=== PATIENT | female | born 1970 | race Caucasian/White ===

== ENCOUNTER → 2019-07-15 12:33 | Outpatient (CLI) | payer MEDICARE, MEDICAID, SELFPAY ==
[2019-07-15 12:49] LABS: Add Manual Diff / Slide Review NO; Basophils Absolute Auto 100 /uL (0-100); Basophils Percent Auto 1.1 % (0-2); Eosinophils Absolute Auto 200 /uL (0-450); Eosinophils Percent Auto 2.8 % (2-4); Hematocrit 40.4 % (36-46); Hemoglobin 13.5 g/dL (12.0-16.0); Lymphocytes Absolute Auto 2900 /uL (1100-4500); Lymphocytes Percent Auto 34.1 % (25-40); Mean Corpuscular HGB Conc 33.4 % (30-36); Mean Corpuscular Hemoglobin 30.2 PG (26-34); Mean Corpuscular Volume 90.5 fL (80-100); Monocytes Absolute Auto 500 /uL (0-900); Monocytes Percent Auto 6.3 % (3-14); Neutrophils Absolute Auto 4800 /uL (1500-7000); Neutrophils Percent Auto 55.7 % (50-75); Platelet Count 350 X10^3/uL (150-400); Red Blood Cell Count 4.47 X10^6/uL (4.0-5.2); Red Cell Distribution Width 13.5 % (11.6-14.8); White Blood Cell Count 8.6 X10^3/uL (4.5-11.0)
[2019-07-15 13:38] LABS: Alanine Aminotransferase 12 IU/L (9-52); Albumin 4.4 g/dL (3.5-5.0); Albumin Globulin Ratio 1.5 (1.0-2.8); Alkaline Phosphatase 94 U/L (38-126); Aspartate Aminotransferase 18 IU/L (14-36); Bilirubin Total 0.3 mg/dL (0.2-1.3); Blood Urea Nitrogen 6 mg/dL (7-17); Calcium 9.8 mg/dL (8.4-10.2); Carbon Dioxide 26 mmol/L (22-32); Chloride 102 mmol/L (98-107); Estimated Glomerular Filt Rate > 60.0 mL/min (>60); Glucose 112 mg/dL (70-100); HEMOLYSIS < 15 (0-50); Potassium 4.2 mmol/L (3.4-5.1); Sodium 139 mmol/L (137-145); Total Protein 7.4 g/dL (6.3-8.2)
== END ==
PROVIDERS: Visit Provider Internal Medicine
DX: R35.8 Other polyuria (principal); F31.9 Bipolar disorder, unspecified
CPT/HCPCS: 36415; 80053; 85025

== ENCOUNTER 2019-07-24 09:58 | Emergency (ER) | payer MEDICARE, MEDICAID, SELFPAY ==
[2019-07-24 10:09] VITALS: BP 93/59; PULSE 82; RESP 18; TEMP 36.7; O2SAT 95
[2019-07-24 12:24] VITALS: BP 104/48; PULSE 71; RESP 16; O2SAT 97
--- NOTE | 2019-07-24 12:45 | ED_ITS ---
HPI - Skin/Abscess/Foreign Bdy <UNIQUE Duval - Last Filed: 07/24/19 22:09> General Chief complaint: Skin/Abscess/Foreign Body Stated complaint: BUMPS ON FACE, RASH Time Seen by Provider: 07/24/19 12:02 Source: patient Mode of arrival: Ambulatory Limitations: no limitations History of Present Illness HPI narrative: This is a 49-year-old female, smoker, presents with daughter with chief complain of painful blisters around her lips and nose for last 2-3 days. Also, she reports dry scaly rash on right extensor elbow. Patient denies fever, chills, nausea or vomiting. However, has increased stress recently with taking care of her children and their school/sports activities. She also had some mild URI symptoms last couple of days which is improving. Patient denies immunocom promised or having chronic disease. Related Data Previous Rx's Medication Instructions Recorded acyclovir 400 mg PO Q8H 7 Days #21 tab 07/24/19 hydrocortisone 1 applictn TOP TID PRN #28 gram 07/24/19 Review of Systems <UNIQUE Duval - Last Filed: 07/24/19 22:09> Review of Systems ROS Unobtainable: All systems reviewed & are unremarkable except as noted in HPI and below Patient History <UNIQUE Duval - Last Filed: 07/24/19 22:09> Medical History (Updated 07/24/19 @ 21:43 by UNIQUE Duval) No significant past medical history (Acute) Surgical History No pertinent past surgical history (Acute) Social History Smoking Status: Current every day smoker Social History Smoking Status: Current every day smoker alcohol intake frequency: other Substance Use Type: does not use Exam <UNIQUE Duval - Last Filed: 07/24/19 22:09> Narrative Exam Narrative: General appearance: well developed, well nourished, in no acute distress. Head: normocephalic, atraumatic, no scalp lesions, non-tender. Eye: pupil equal, round. EOMI. Nose: nares patent. Oral: mucosa moist. Clustered red and crusty rashes around the lips and nasal opening. Neck/Thyroid: neck supple, full range of motion, no visible masses. Skin: Dry, scaly and plaque like rash on right extensor elbow. No other suspicious rashes, lesions over visible areas. Warm and dry. Heart: no clubbing, no cyanosis, no edema. Lungs: Breathing even and unlabored. No stridor. No accessory muscles used. Chest: normal shape and expansion. Abdomen: non-obese, non-distended. Neurologic: alert and oriented. Cognitive exam, EDUCATIONAL RESOURCE COORDINATOR and PNS grossly intact on informal exam. Psych: good eye contact, normal affect. Initial Vital Signs Initial Vital Signs: Vital Signs Temperature 98.0 F 07/24/19 10:09 Pulse Rate 82 07/24/19 10:09 Respiratory Rate 18 07/24/19 10:09 Blood Pressure 93/59 L 07/24/19 10:09 Pulse Oximetry 95 07/24/19 10:09 <Polina Henderson DO - Last Filed: 07/28/19 18:09> Initial Vital Signs Initial Vital Signs: Vital Signs Temperature 98.0 F 07/24/19 10:09 Pulse Rate 82 07/24/19 10:09 Respiratory Rate 18 07/24/19 10:09 Blood Pressure 93/59 L 07/24/19 10:09 Pulse Oximetry 95 07/24/19 10:09 Scores <ROGER DuvalP - Last Filed: 07/24/19 22:09> GCS [place] coma scale eye opening: Spontaneous [place] coma scale verbal response: Orientated [place] coma scale motor response: Obey commands [place] coma scale total score: 15 Course <ROGER DuvalP - Last Filed: 07/24/19 22:09> Vital Signs Vital signs: Vital Signs - 8 hr 07/24/19 10:09 07/24/19 12:24 Temperature 98.0 F Pulse Rate 82 71 Respiratory Rate 18 16 Blood Pressure 93/59 L Blood Pressure [Left Arm] 104/48 L Pulse Oximetry 95 97 <Polina Henderson DO - Last Filed: 07/28/19 18:09> Vital Signs Vital signs: Vital Signs - 8 hr 07/24/19 10:09 07/24/19 12:24 Temperature 98.0 F Pulse Rate 82 71 Respiratory Rate 18 16 Blood Pressure 93/59 L Blood Pressure [Left Arm] 104/48 L Pulse Oximetry 95 97 MDM - Skin/Abscess/Foreign Bdy <UNIQUE Duval - Last Filed: 07/24/19 22:09> Differential Diagnosis Differential diagnosis: Likely eczema and other (HSV type 1, atopic dermatitis, psoriasis) Medical Records Attestation: I reviewed the patient's medical records. [facility] Narrative Medical decision making narrative: This is a 49-year-old female, smoker, with under stress presents to ED with small painful crusty lesions around the lips and nasal openings for last 2-3 days. She also complains of scaly and plaque- like rash on her right extensor elbow. She does not have constitutional symptoms. 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 Right extensor elbow skin lesion appears to be psoriasis vs. eczema vs. dry skin. Prescription has been provided for initial acyclovir 400 mg t.i.d. dose for 7 days for HSV 1 infection and hydrocortisone 2% cream with rich moisturizer on affected elbow as well. Patient advised to stop smoking but declines at this time. Return precautions were discussed with the patient and the patient verbalized understanding and agrees with treatment plan. Discharge Plan Departure Patient Disposition: Home Clinical Impression: Oral herpes simplex infection, Eczema of right upper extremity Discharge Date/Time: 07/24/19 12:45 Instructions: DI for Cold Sores, DI for Atopic Dermatitis - Adult Activity Restrictions/Additional Instructions: You have been diagnosed with [likely oral cold sores, eczema/dermatitis on your elbow]. What to do: *Take your medications as directed. Start medication as soon as you pick it up today. Please take precautions not to share drinks, utensils, or casting until your cold sores resolved. *Follow up with your primary care provider in 2-3 days, call for an appointment. Let them know you were seen in the ED and that we asked you to be seen in follow up. *Return to ED if you have any new, worsening, or concerning symptoms, such as [fever, chest pain, breathing difficulty, unable to tolerate fluids, or any acute concerns]. Prescriptions: New acyclovir 400 mg tablet 400 mg PO Q8H 7 Days Qty: 21 RF: 0 hydrocortisone 2.5 % cream 1 applictn TOP TID PRN (Reason: dry rash) Qty: 28 RF: 0 Referrals: Jorden Sellers MD [Physician] -
== END 2019-07-24 12:45 | disposition home or self-care (01) ==
PROVIDERS: Emergency Provider Nurse Practitioner Family
DX: B00.2 Herpesviral gingivostomatitis and pharyngotonsillitis (principal); L30.9 Dermatitis, unspecified
CPT/HCPCS: 99282

== ENCOUNTER → 2019-08-31 09:49 | Outpatient (CLI) | payer MEDICARE, MEDICAID, SELFPAY ==
--- NOTE | 2019-08-31 | DI.MG.S_ITS ---
BILATERAL DIGITAL SCREENING MAMMOGRAM 3D/2D WITH CAD: 08/31/2019 CLINICAL: Routine screening. Baseline exam. No prior exams were available for comparison. There are scattered fibroglandular elements in both breasts. Current study was also evaluated with a Computer Aided Detection (CAD) system. There is an oval low density focal asymmetry with an indistinct margin in the right breast at 6 o'clock posterior depth. No other significant masses, calcifications, or other findings are seen in either breast. IMPRESSION: INCOMPLETE: NEEDS ADDITIONAL IMAGING EVALUATION The oval low density focal asymmetry in the right breast is indeterminate. Mediolateral and spot compression views as well as additional views with possible ultrasound are recommended. This exam was interpreted at Station ID: [id number]. NOTE: For mammograms, a report in lay terms will be sent to the patient. Approximately 15% of breast malignancies will not be visualized mammographically. In the management of a palpable breast mass, a negative mammogram must not discourage biopsy of a clinically suspicious lesion. Electronically Signed By: Ruddy de leon/al:08/31/2019 11:03:22 letter sent: Additional Imaging Needed ACR BI-RADS Category 0: Incomplete [id number]
== END ==
PROVIDERS: PCP Internal Medicine; Visit Provider Nurse Practitioner Family
DX: Z12.31 Encounter for screening mammogram for malignant neoplasm of breast (principal)
CPT/HCPCS: 77063; 77067

== ENCOUNTER 2020-06-16 16:55 | Emergency (ER) | payer MEDICARE, MEDICAID, SELFPAY ==
--- NOTE | 2020-06-16 17:07 | DI.RAD.S_ITS ---
PROCEDURE: XR TOE LT MIN 2V INDICATIONS: dropped cement on it TECHNIQUE: Three views of the left 2nd toe(s) acquired. COMPARISON: None. FINDINGS: Bones: No fractures or dislocations comminuted crush type fracture of the 2nd distal phalanx including the tuft in potentially extending to the articular surface seen on the lateral view. Bone alignment remains normal. There is enthesopathic change at the 5th metatarsal base Soft tissues: No suspicious soft tissue densities. IMPRESSION: 1. Crush fracture of the 2nd distal phalanx with probable extension to the articular surface. 2. If there is disruption of the nail bed, treated as an open fracture. Dictated by: Fouzia Amezquita M.D. on 06/16/2020 at 17:24 Approved by: Fouzia Amezquita M.D. on 06/16/2020 at 17:26
[2020-06-16 17:09] VITALS: BP 101/62; PULSE 87; RESP 18; TEMP 36.8; O2SAT 98; BMI 31.9
[2020-06-16] MEDS: CEFAZOLIN 2 GM/100 ML FROZ.PIGGY IV (19:33)
[2020-06-16] MEDS: BACITRACIN OINT 0.9 GM PCKT 1 APPLIC TOP (19:33)
[2020-06-16 20:21] VITALS: BP 100/60; PULSE 77; O2SAT 99
--- NOTE | 2020-06-16 20:21 | ED.LOWEXIN ---
HPI - Extremity Injury (Lower) <DEBRA Houser - Last Filed: 06/16/20 20:36> General Chief Complaint: Extremity Injury, Lower Stated Complaint: lt foot pain Time Seen by Provider: 06/16/20 16:58 Source: patient Mode of arrival: Ambulatory Limitations: no limitations History of Present Illness HPI Narrative: The patient is a 50-year-old female current everyday smoker with history of schizophrenia who presents with a chief complaint of an injury to her left foot. She states she dropped a Pallet on her 2nd toe of her left foot over 24 hours ago. She has history of fracture in that toe. She states her tetanus is up-to-date, in fact she received a few days ago. She states that they have washed it out with hydrogen peroxide. Her notes that she walked over to miles on her foot today and he is concerned about a fracture. Related Data Previous Rx's Medication Instructions Recorded hydrocortisone 1 applictn TOP TID PRN #28 gram 07/24/19 cephalexin 500 mg PO TID #30 cap 06/16/20 Allergies Allergy/AdvReac Type Severity Reaction Status Date / Time No Known Drug Allergies Allergy Verified 06/16/20 17:08 Review of Systems <DEBRA Houser - Last Filed: 06/16/20 20:36> Review of Systems Narrative: GENERAL: Denies chills, fatigue, malaise, fever, sweats. HEENT: Denies sinus pain, ear pain, sore throat, difficulty swallowing, dizziness. RESPIRATORY: Denies dyspnea, cough, wheezing, hemoptysis, sputum. CARDIOVASCULAR: Denies chest pain, palpitations, orthopnea, edema, GASTROINTESTINAL: Denies nausea, vomiting, abdominal pain, diarrhea, constipation, melena. : Denies dysuria, frequency, incontinence, hematuria, urinary retention. MUSCULOSKELETAL: See HPI SKIN: See HPI NEUROLOGIC: Denies weakness, headache, numbness, change in speech, confusion, seizures, incoordination. PSYCHIATRIC: No concerning psychosocial issues. 12 point review of systems is negative except for those stated above Patient History <DEBRA Houser - Last Filed: 06/16/20 20:36> Medical History (Updated 06/16/20 @ 20:28 by DEBRA Houser) No significant past medical history (Acute) Surgical History No pertinent past surgical history (Acute) Social History Smoking Status: Current every day smoker Smoking Status: Current every day smoker alcohol intake frequency: other Substance Use Type: does not use Exam <DEBRA Houser - Last Filed: 06/16/20 20:36> Narrative Exam Narrative: GENERAL: This is a well-nourished, well-developed patient, appears anxious HEAD: Atraumatic. Normocephalic. No temporal or scalp tenderness. EYES: Pupils equal round and reactive. Extraocular motions intact. No scleral icterus. No injection or drainage. ENT: Nose without bleeding, purulent drainage or septal hematoma. Wearing a mass. Airway patent. NECK: Trachea midline. No JVD or lymphadenopathy. Supple, nontender, no meningeal signs. CARDIOVASCULAR: Regular rate and rhythm RESPIRATORY: No cough. No increased respiratory effort. No accessory muscle use. EXTREMITIES: 2nd toe, left foot with ecchymosis on distal phalanx. Small abrasion noted id IP, 0.25 cm laceration noted at nail bed. No obvious nail injury. Capillary refill less than 2 seconds. No extending erythema purulent drainage noted. Positive pedal pulses left foot. BACK: Nontender without deformity or crepitance. No flank tenderness. NEURO: AOx3. SKIN: See extremity exam Initial Vital Signs Initial Vital Signs: Vital Signs Temperature 98.3 F 06/16/20 17:09 Pulse Rate 87 06/16/20 17:09 Respiratory Rate 18 06/16/20 17:09 Blood Pressure 101/62 06/16/20 17:09 Pulse Oximetry 98 06/16/20 17:09 <Jorden Ruvalcaba MD - Last Filed: 06/24/20 04:58> Initial Vital Signs Initial Vital Signs: Vital Signs Temperature 98.3 F 06/16/20 17:09 Pulse Rate 87 06/16/20 17:09 Respiratory Rate 18 06/16/20 17:09 Blood Pressure 101/62 06/16/20 17:09 Pulse Oximetry 98 06/16/20 17:09 Procedures <DEBRA Houser - Last Filed: 06/16/20 20:36> Orthopedic Splinting/Casting Injury #1: Side: left Upper Extremity Immobilizer: Jimi wrap Lower Extremity Injury Location: toe Lower Extremity Immobilizer: post-op shoe and jeanine tape Post splinting neuro exam: intact Post splinting vascular exam: intact Placed by: Nursing Scores <DEBRA Houser - Last Filed: 06/16/20 20:36> GCS [place] coma scale eye opening: Spontaneous [place] coma scale verbal response: Orientated [place] coma scale motor response: Obey commands [place] coma scale total score: 15 Course <DEBRA Houser - Last Filed: 06/16/20 20:36> Orders Ordered: Discontinued Medications Bacitracin (Bacitracin) 1 applic TOP NOW ONE Stop: 06/16/20 19:09 Last Admin: 06/16/20 19:33 Dose: 1 applic Documented by: LEATHA Cefazolin Sodium/Dextrose (Ancef) 2 gm in 100 mls @ 200 mls/hr IV NOW ONE Stop: 06/16/20 18:44 Last Infusion: 06/16/20 20:08 Dose: 0 mls/hr Documented by: Admin: 06/16/20 19:33 Dose: 200 mls/hr Documented by: LEATHA Vital Signs Vital signs: Vital Signs - 8 hr 06/16/20 17:09 06/16/20 20:21 Temperature 98.3 F Pulse Rate 87 77 Respiratory Rate 18 Blood Pressure 101/62 100/60 Pulse Oximetry 98 99 <Jorden Ruvalcaba MD - Last Filed: 06/24/20 04:58> Orders Ordered: Discontinued Medications Bacitracin (Bacitracin) 1 applic TOP NOW ONE Stop: 06/16/20 19:09 Last Admin: 06/16/20 19:33 Dose: 1 applic Documented by: LUPEL Cefazolin Sodium/Dextrose (Ancef) 2 gm in 100 mls @ 200 mls/hr IV NOW ONE Stop: 06/16/20 18:44 Last Infusion: 06/16/20 20:08 Dose: 0 mls/hr Documented by: Admin: 06/16/20 19:33 Dose: 200 mls/hr Documented by: LEATHA Vital Signs Vital signs: Vital Signs - 8 hr 06/16/20 17:09 06/16/20 20:21 Temperature 98.3 F Pulse Rate 87 77 Respiratory Rate 18 Blood Pressure 101/62 100/60 Pulse Oximetry 98 99 MDM - Extremity Injury (Lower) <DEBRA Houser - Last Filed: 06/16/20 20:36> Imaging Data Extremity x-ray #1: Radiologist's Impression: [address] [place] [id number] XRay Report Signed Patient: [facility]#: [id number] : 1970Acct:[id number] Age/Sex: 50 / FDate of Service: 06/16/20 Loc: ED Accession Number: [id number] Procedure: XR toe LT min 2V Ordering Provider: Laura Urban PROCEDURE: XR TOE LT MIN 2V INDICATIONS: dropped cement on it TECHNIQUE: Three views of the left 2nd toe(s) acquired. COMPARISON: None. FINDINGS: Bones: No fractures or dislocations comminuted crush type fracture of the 2nd distal phalanx including the tuft in potentially extending to the articular surface seen on the lateral view. Bone alignment remains normal. There is enthesopathic change at the 5th metatarsal base Soft tissues: No suspicious soft tissue densities. IMPRESSION: 1. Crush fracture of the 2nd distal phalanx with probable extension to the articular surface. 2. If there is disruption of the nail bed, treated as an open fracture. Dictated by: Fouzia Amezquita M.D. on 06/16/2020 at 17:24 Approved by: Fouzia Amezquita M.D. on 06/16/2020 at 17:26 [facility] Narrative Medical decision making narrative: With a chief complaint of a crush injury to her left 2nd toe. Her tetanus is up-to-date. She presents over 24 hours after an injury. She is noted to have a fracture of her distal phalanx which is noted to be a crush type. Given that there is slight disruption to the nail bed, it was treated as an open fracture she was given 2 g Ancef in the emergency department. I placed her on Keflex. She has no signs of infection at this point time, is neurovascularly intact. I discussed at length keeping her wound clean and dry, not submerging in dirty water such as pool water etcetera, and monitor for signs and symptoms of infection including extending redness and purulent drainage. That wound was copiously cleansed with Hibiclens in the emergency department. The patient was placed in a postoperative shoe as well as jeanine tape. Discussed at length follow up with primary care provider, orthopedics if necessary. Patient has no questions or concerns upon discharge and states understanding of return precautions as well as follow-up care. Discharge Plan Departure Patient Disposition: Home Clinical Impression: Fracture of toe Qualifiers: Encounter type: initial encounter Toe: lesser toe Fracture type: open Phalanx: distal Physeal involvement: unspecified Laterality: left Qualified Code(s): S92.532B - Displaced fracture of distal phalanx of left lesser toe(s), initial encounter for open fracture Discharge Date/Time: 06/16/20 20:30 Instructions: DI for Toe Fracture, How To Perform RICE (Rest, Ice, Compress, Elevate) Activity Restrictions/Additional Instructions: Thank you for trusting us with your care today. I am sorry that you are injured and hope that you get better soon As discussed, you have a broken toe, with lacerations over it Thus we have placed you on antibiotics. I sent this prescription to [facility] on [address]. Please take this with probiotic or yogurt. Please monitor for sign of infection including extending redness etcetera Please follow-up with primary care provider. I also given contact information to the [facility] health human resources manager. Please use [id number] medications as needed and able as well as rest ice compression elevation. Prescriptions: New cephalexin 500 mg capsule 500 mg PO TID Qty: 30 RF: 0 No Action hydrocortisone 2.5 % cream 1 applictn TOP TID PRN (Reason: dry rash) Qty: 28 RF: 0 Referrals: [facility] [Provider Group] Jorden Sellers MD [Primary Care Provider] - <Jorden Ruvalcaba MD - Last Filed: 06/24/20 04:58> Cosign ED Attending Cosignature Attestation: I was immediately available in the department for consultation. This documentation has been reviewed and I agree with assessment and plan. Supervised by Jorden Ruvalcaba MD
== END 2020-06-16 20:30 | disposition home or self-care (01) ==
PROVIDERS: Emergency Provider Nurse Practitioner Family; PCP Internal Medicine
DX: S92.532B Displaced fracture of distal phalanx of left lesser toe(s), initial encounter for open fracture (principal); W22.8XXA Striking against or struck by other objects, initial encounter
CPT/HCPCS: 73660; 96365; 99284; J0690